=== PATIENT | male | born 1990 | race Caucasian/White ===

== ENCOUNTER 2020-08-24 12:59 | Emergency (ER) | payer MEDICAID, OTHER ==
[~2020-08-24] VITALS: Ht 182.9 cm; Wt 83.9 kg
[2020-08-24 13:00] VITALS: BP_SYST 132
--- NOTE | 2020-08-24 13:05 | NUR ---
Patient triaged and placed in waiting room. VSS and patient appears in no acute distress at this time. Accompanied by SELF, awaiting available bed, and MD notified of need for MSE.
--- NOTE | 2020-08-24 13:07 | NUR ---
Pt brought by self, A&Ox4, pt presents to ER with lower back pain ,states he had an injury at work 3 years ago and c/o pain getting worse this week, pt had back surgery on 2018, requesting pain medication, skin pink and warm, cap refill <3, VSS, respirations even and unlabored .
--- NOTE | 2020-08-24 13:20 | NUR ---
DR ANDREWS EVALUATING PT IN TRIAGE ROOM
[2020-08-24] MEDS ORDERED: KETOROLAC TROMETHAMINE 60 MG/2 ML VIAL IM ONE (13:30)
[2020-08-24 14:01] VITALS: BP_SYST 132
--- NOTE | 2020-08-24 14:01 | NUR ---
Patient given written and verbal discharge instructions and verbalizes understanding. ER MD discussed with patient the results and treatment provided. Patient in stable condition. ID arm band removed. Rx of Robaxin, Motrin and Tramadol given. Patient educated on pain management and to follow up with PMD. Pain Scale 3/10 tolerable for patient . Opportunity for questions provided and answered. Medication side effect fact sheet provided.
== END 2020-08-24 14:01 | disposition home or self-care (01) ==
LOC: SED 12:59
DX: G89.29 Other chronic pain (principal); M54.5 Low back pain; Z76.0 Encounter for issue of repeat prescription
CPT/HCPCS: 96372; 99283; J1885